=== PATIENT | female | born 2005 | race Caucasian/White ===

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

== ENCOUNTER 2024-04-08 12:42 | Emergency (ER) | payer BC, SELFPAY ==
[2024-04-08 12:47] VITALS: BP 139/97; PULSE 130; TEMP 37.2; O2SAT 99; BMI 31.6
--- NOTE | 2024-04-08 13:02 | XR_ITS ---
The [address] [address] Patient Name: LIO YEPEZ MRN: [id number] date: 2005 Sex: F Assigned Patient Location: ED.MAIN Current Patient Location: Accession/Order Number: [id number] Exam Date: 04/08/2024 15:10 Report Date: 04/08/2024 17:11 At the request of: TAL ABEBE Procedure: XR abdomen 1V EXAM: XR abdomen 1V 04/08/2024 COMPARISON STUDY: CT of the abdomen and pelvis 08/25/2021. FINDINGS: A total of 2 supine images of the abdomen and pelvis were obtained. HISTORY: constipation XR/XR abdomen 1V IMPRESSION: 1. Constipation with significant retention of stool at the rectum. Rectum is distended to transverse width of 8.4 cm. 2. There is a new subcentimeter calcified focus within the left hemipelvis measuring 5 mm presumably related to phleboliths. 3. Heart size is normal. Lung bases are clear. No acute osseous abnormality noted. Electronically authenticated by: NASREEN SANTA Date: 04/08/2024 17:11
[2024-04-08] MEDS: GLYCERIN ADULT 2 GRAM RECTAL SUPPOSITORY 1 SUPP PR (14:34)
[2024-04-08] MEDS: KETOROLAC TROMETHAMINE 30 MG/ML VIAL IM (14:35)
[2024-04-08] MEDS: FLEET PR (15:00)
--- NOTE | 2024-04-08 15:56 | ED_ITS ---
HPI HPI - General Adult General Chief complaint: Urogenital-Female Stated complaint: NO BOWEL MOVEMENT SINCE YESTERDAY WITH PAIN Time Seen by Provider: 04/08/24 12:58 Source: patient and family Mode of arrival: walk-in Limitations: no limitations History of Present Illness HPI narrative: 18-year-old female to the emergency department chief complaint of constipation. Patient reports she has not had a bowel movement last 24 hours despite an intense urge to have one. She reports that she recently had a knee surgery and has been on oxycodone. She believes that she is constipated at this time. She denies any other symptoms. No dysuria, urgency, frequency. No fever, sweats, chills. Related Data Home Medications ?Medication ?Instructions ?Recorded ?Confirmed aspirin 81 mg tablet,delayed 81 mg PO .q12 04/08/24 04/08/24 release docusate sodium 100 mg capsule 100 mg PO BID 04/08/24 04/08/24 (Dulcolax Stool Softener (docusate)) oxycodone 5 mg tablet 5 mg PO Q6H PRN pain 04/08/24 04/08/24 Allergies Allergy/AdvReac Type Severity Reaction Status Date / Time No Known Drug Allergies Allergy Verified 04/08/24 12:50 Opioid HPI Opioid Management Most Recent Opioid Data: No Data to Display Review of Systems ROS Status of ROS 10 or more systems reviewed and unremark able except as noted in history and below PFSH PFSH Social History Little interest or pleasure in doing things: not at all Feeling down, depressed, or hopeless: not at all Exam Narrative Exam Narrative: VITALS: I have reviewed the triage vital signs. GENERAL: Well developed, well appearing adult in no acute distress. NEURO: Alert and oriented. Moves all extremities. Face is symmetric and expressive. GI/: Abdomen is soft and non-tender. Normoactive bowel sounds. EXTREMITIES: Symmetric muscle bulk. No joint swelling. No clubbing, cyanosis, or deformity. SKIN: Warm and dry. Normal turgor. No rash or lesions appreciated. PSYCH: Mood, affect, and interaction is appropriate to the setting. Constitutional Vital Signs, click to edit/add: Last Vital Signs Temp 98.9 F 04/08/24 12:47 Pulse 130 H 04/08/24 12:47 Resp 26 H 04/08/24 12:47 BP 139/97 H 04/08/24 12:47 Pulse Ox 99 04/08/24 12:47 O2 Del Method Room Air 04/08/24 12:47 Course Vital Signs Vital signs: Vital Signs Temperature 98.9 F 04/08/24 12:47 Pulse Rate 130 H 04/08/24 12:47 Respiratory Rate 26 H 04/08/24 12:47 Blood Pressure 139/97 H 04/08/24 12:47 Pulse Oximetry 99 04/08/24 12:47 Oxygen Delivery Method Room Air 04/08/24 12:47 Temperature 98.9 F 04/08/24 12:47 Pulse Rate 130 H 04/08/24 12:47 Respiratory Rate 26 H 04/08/24 12:47 Blood Pressure 139/97 H 04/08/24 12:47 Pulse Oximetry 99 04/08/24 12:47 Oxygen Delivery Method Room Air 04/08/24 12:47 Medical Decision Making MDM Narrative Medical decision making narrative: 18-year-old female to the emergency department chief complaint of constipation. Vital stable, the patient is afebrile. Abdominal examination is benign. X-rays ordered. X-ray consistent with fecal impaction. Toradol for discomfort. She was given glycerin suppository as well as Fleet enema. Patient had a large bowel movement and felt much improved. She is appropriate for discharge home. Bowel regimen with Colace and MiraLAX. Mother agrees with this plan. The patient was discharged home. Imaging Data Abdominal x-ray: Attestation: I have reviewed the pertinent imaging results. Radiologist's impression: ITS Impressions Abdomen X-Ray 04/08/24 13:02 IMPRESSION: 1. Constipation with significant retention of stool at the rectum. Rectum is distended to transverse width of 8.4 cm. 2. There is a new subcentimeter calcified focus within the left hemipelvis measuring 5 mm presumably related to phleboliths. 3. Heart size is normal. Lung bases are clear. No acute osseous abnormality noted. Electronically authenticated by: NASREEN SANTA Date: 04/08/2024 13:58 Discharge Plan Discharge Chief Complaint: Urogenital-Female Clinical Impression: Constipation Patient Disposition: Home, Self-Care Time of Disposition Decision: 15:38 Condition: Good Mode of Transportation: Private Vehicle Prescriptions / Home Meds: No Action aspirin 81 mg tablet,delayed release (DR/EC) 81 mg PO .q12 oxycodone 5 mg tablet 5 mg PO Q6H PRN (Reason: pain) docusate sodium [Dulcolax Stool Softener (dss)] 100 mg capsule 100 mg PO BID Print Language: Guatemalan Instructions: Constipation (ED) Additional Instructions: Call the office of your primary care doctor to arrange for follow-up within the above-stated timeframe. Your ED visit was focused on your acute issue and does not replace primary care. You should review your labs, imaging, and diagnoses from this ED visit with your primary care physician. There may be non-emergent/ incidental findings that need further evaluation. You should review your vital signs including blood pressure with your PCP. If you were prescribed medications you should discuss possible side-effects and drug interactions with your pharmacist. Call 911 or go to the nearest Emergency Department if you develop any new or worsening symptoms. Referrals: Ian Batista DO [Primary Care Provider] - 1 week Discharge Date/Time: 04/08/24 15:40
== END 2024-04-08 15:40 | disposition home or self-care (01) ==
PROVIDERS: Emergency Provider Student in an Organized Health Care Education/Training Program; PCP Internal Medicine
DX: K59.00 Constipation, unspecified (principal); Z98.890 Other specified postprocedural states
CPT/HCPCS: 74018; 96372; 99284; J1885

== ENCOUNTER 2024-09-27 09:17 | Outpatient (OUT) | payer BC, SELFPAY ==
[2024-09-27 09:49] LABS: Basophils Percent Auto 0.7 % (0.2-2.0); Eosinophils Absolute Auto 0.2 10^3/uL (0.0-0.7); Eosinophils Percent Auto 2.7 % (0.9-7.0); Hematocrit 39.3 % (36.0-48.0); Hemoglobin 13.2 g/dL (12.0-16.0); Immature Granulocytes Abs Auto 0.01 10^3/uL (0.00-0.03); Immature Granulocytes Pct Auto 0.2 % (0.0-0.5); Lymphocytes Absolute Auto 2.5 10^3/uL (1.2-3.8); Lymphocytes Percent Auto 41.5 % (20.5-60.0); Mean Corpuscular HGB Conc 33.6 g/dL (29.9-35.2); Mean Corpuscular Hemoglobin 29.2 pg (26.7-34.0); Mean Corpuscular Volume 86.9 fL (81.0-99.0); Mean Platelet Volume 10.3 fL (9.5-13.5); Monocytes Absolute Auto 0.3 10^3/uL (0.3-0.8); Monocytes Percent Auto 5.6 % (1.7-12.0); Neutrophils Absolute Auto 2.9 10^3/uL (1.4-6.5); Neutrophils Percent Auto 49.3 % (43.0-75.0); Platelet Count 261 10^3/uL (150-450); Red Blood Count 4.52 10^6/uL (4.20-5.40); Red Cell Distribution Width 12.7 % (11.0-15.0); White Blood Count 5.9 10^3/uL (4.0-11.0)
[2024-09-27 10:27] LABS: Alanine Aminotransferase 16 U/L (14-59); Albumin Globulin Ratio 1.1; Albumin Level 3.6 g/dL (3.4-5.0); Alkaline Phosphatase 88 U/L (46-116); Anion Gap 11.6; Aspartate Amino Transferase 13 U/L (15-37); BUN Creatinine Ratio 18.2; Bilirubin Total 0.3 mg/dL (0.2-1.0); Calcium 9.1 mg/dL (8.5-10.1); Carbon Dioxide 28.6 mmol/L (21.0-32.0); Chloride 105 mmol/L (98-107); Chol HDL Ratio 2.8; Cholesterol 148 mg/dL (<=200); Estimated GFR (African America >60 (>=60 mL/min/1.73m^2); Estimated GFR (Non-African Ame >60 (>=60 mL/min/1.73m^2); Globulin 3.3 g/dL; Glucose 101 mg/dL (74-106); HDL Cholesterol 52 mg/dL (40-60); LDL Cholesterol Calculated 84.8 mg/dL; Potassium 4.2 mmol/L (3.5-5.1); Sodium 141 mmol/L (136-145); Thyroid Stimulating Hormone 1.722 uIU/mL (0.358-3.740); Total Protein 6.9 g/dL (6.4-8.2); Triglycerides 56 mg/dL (<=150); VLDL CHOLESTEROL 11.2 mg/dL
== END 2024-09-27 09:18 | disposition home or self-care (01) ==
LOC: LAB 09:18
PROVIDERS: PCP Internal Medicine; Visit Provider Internal Medicine
DX: Z00.00 Encounter for general adult medical examination without abnormal findings (principal)
CPT/HCPCS: 36415; 80053; 80061; 84443; 85025